=== PATIENT | female | born 1990 | race Caucasian/White ===

== ENCOUNTER 2017-02-12 22:18 | Emergency (ER) | payer OTHER ==
[~2017-02-12 22:18] MED LIST: LAC PO; LEVAQUIN750 MG PO; NORCO1 TA2 PO
[2017-02-12 23:19] VITALS: BP 129/80
== END 2017-02-12 23:19 | disposition home or self-care (01) ==
LOC: ED 22:18
DX: K08.89 Other specified disorders of teeth and supporting structures (principal)